=== PATIENT | female | born 1970 | race American Indian/Alaskan Native ===

== ENCOUNTER 2019-05-25 09:27 | Day surgery (SDC) | payer MEDICARE ==
[2019-05-25 10:06] VITALS: BP 127/86
[2019-05-25] MEDS ORDERED: MARCAINE 0.5% INFILTRATI ONE ×2 (11:33→12:26)
[2019-05-25] MEDS ORDERED: XYLOCAINE 1% 20 mL ONE (11:33)
[2019-05-25] MEDS ORDERED: XYLOCAINE 1% 20 mL INFILTRATI ONE (12:26)
--- NOTE | 2019-05-25 15:38 | Procedure Note ---
Date of procedure: 05/25/19 Pre-op diagnosis: chronic right knee pain Post-op diagnosis: same Procedure: Right Geniculate Nerve Block under C-arm fluroscopy procedure The patient taken to the OR suite where he was place on the table supine with padded triangular pad placed along the potileal fossa. The right knee prepped and draped in usual sterile fashion. 22-gauge spinal needle used to locate areas for injection, the medial and lateral supracondylar ridges as well as the medial border of the proximal tibia and suprapatellar region. These areas were anesthized using lidocaine 1% followed by placement of spinal needle near the medial, and lateral geniculate nerves. A mixture of marcaine and lidocaine injected into the deeper structures. There were no complications noted and he tolerated well. Anesthesia: local Surgeon: BOBBI GRIDER Patent Attorney: ADILENE CARIAS Estimated blood loss: minimal Pathology: none Condition: stable Disposition: PACU
--- NOTE | 2019-05-26 07:16 | XRay Report ---
INTRAOPERATIVE RIGHT KNEE RADIOGRAPHS INDICATION: Right knee pain. COMPARISON: None similar. IMAGES/CINE CLIPS: 2 FINDINGS: Intraoperative fluoroscopic guidance provided. AP and lateral views demonstrate 3 injection needles around the right knee joint and patellofemoral degenerative changes. CONCLUSION: Intraoperative fluoroscopic guidance provided, as described. Thank you for the opportunity to participate in this patient's care.
== END 2019-05-25 09:28 | disposition home or self-care (01) ==
LOC: OR 09:27
PROVIDERS: ATTEND Orthopaedic Surgery
DX: M17.11 Unilateral primary osteoarthritis, right knee (principal); G43.909 Migraine, unspecified, not intractable, without status migrainosus; I10 Essential (primary) hypertension; J45.909 Unspecified asthma, uncomplicated; G47.30 Sleep apnea, unspecified; K21.9 Gastro-esophageal reflux disease without esophagitis; M19.90 Unspecified osteoarthritis, unspecified site; F32.9 Major depressive disorder, single episode, unspecified; F41.9 Anxiety disorder, unspecified; Z91.040 Latex allergy status; Z79.899 Other long term (current) drug therapy; Z98.51 Tubal ligation status; Z98.890 Other specified postprocedural states; Z86.2 Personal history of diseases of the blood and blood-forming organs and certain disorders involving the immune mechanism; Z88.8 Allergy status to other drugs, medicaments and biological substances; Z86.73 Personal history of transient ischemic attack (TIA), and cerebral infarction without residual deficits

== ENCOUNTER 2019-06-29 06:01 | Day surgery (SDC) | payer MEDICARE ==
[2019-06-29] MEDS ORDERED: MARCAINE 0.5% INFILTRATI ONE ×4 (07:09→14:44)
[2019-06-29] MEDS ORDERED: DEPO-Medrol ONE (07:09)
[2019-06-29] MEDS ORDERED: XYLOCAINE 1% 20 mL ONE ×2 (07:09→14:44)
[2019-06-29] MEDS ORDERED: LACTATED RINGERS 1,000 ML ONE (07:49)
[2019-06-29] MEDS ORDERED: ZOFRAN IV PRN (08:47)
[2019-06-29] MEDS ORDERED: DILAUDID IV PRN (08:47)
--- NOTE | 2019-06-29 08:47 | Anesthesia Day of Surgery ---
Anesthesia Day of Surgery - Day of Surgery Patient Examined: Yes Patient H&P Reviewed: Yes Patient is NPO: Yes
--- NOTE | 2019-06-29 08:47 | Anesthesia Consultation ---
Anesthesia Consult and Med Hx - Airway Anesthetic Teeth Evaluation: Good ROM Head & Neck: Adequate Mental/Hyoid Distance: Adequate Mallampati Class: Class II Intubation Access Assessment: Good - Pulmonary Exam CTA: Yes - Cardiac Exam Cardiac Exam: RRR - Pre-Operative Health Status ASA Pre-Surgery Classification: ASA3 Proposed Anesthetic Plan: MAC - Pulmonary Hx Smoking: No Hx Asthma: Yes (DAILY INHALERS) Hx Sleep Apnea: Yes (DX SLEEP APNEA WITH CPAP USE.) - Cardiovascular System Hx Hypertension: Yes (X 15 YRS) - Central Nervous System Hx Seizures: Yes (LAST ONE 01/2019) CVA: Yes (SEVERAL TIA'S (LAST ONE 09/2014) NO DEFICITS) Hx Back Pain: Yes (TO RIGHT LEG (CHRONIC)) - Hematic Hx Anemia: Yes - Other Systems Hx Cancer: No
[2019-06-29] MEDS ORDERED: VERSED ONE (08:52)
[2019-06-29] MEDS ORDERED: DIPRIVAN 10 MG/ML IV ONE (08:52)
[2019-06-29] MEDS ORDERED: XYLOCAINE MPF 2% ONE (08:53)
[2019-06-29] MEDS ORDERED: LACTATED RINGERS 1,000 ML IV SCH ×2 (09:00)
[2019-06-29] MEDS ORDERED: DEPO-Medrol INTRA-ARTI ONE (09:15)
[2019-06-29] MEDS ORDERED: XYLOCAINE 1% 20 mL INFILTRATI ONE (09:15)
--- NOTE | 2019-06-29 10:48 | Procedure Note ---
Date of procedure: 06/29/19 Pre-op diagnosis: chronic right knee pain Post-op diagnosis: same Procedure: Geniculate nerve radiofrequency ablation right knee Procedure The patient was brought to the OR and placed in the OR table supine position patient was Given IV and was masked the procedure following this the patient's right knee was prepped and draped in the routine sterile manner. A timeout procedure was done to identify the patient and the correct operative site. Under C-arm visualization the skin was anesthetized with the 1% lidocaine at both the medial and lateral suprapatellar regions as well as the proximal portion of the medial tibial metaphysis. Following this the the introducers radiofrequency ablator introducer probes were inserted into the distal femoral metaphysis close to the bone and midway along the sagittal plane as well as along the proximal tibial metaphysis to be appropriate place simultaneously following this following this the probe were checked for full motor nerve function there did not appear to be any next the radiofrequency ablator was turned on and the nerves were ablated to a temperature of 60C for approximately 2-1/2 minutes each. A mixture of Depo-Medrol and lidocaine was then injected into each location to help with postoperative pain and inflammation. The patient tolerated the procedure there were no complications he was then taken to postanesthesia recovery in a stable condition. Anesthesia: other (IV sedation with local lidocaine infiltration) Surgeon: BOBBI GRIDER Estimated blood loss: minimal Pathology: none Condition: stable Disposition: PACU
[2019-06-29 10:56] VITALS: BP 137/83
--- NOTE | 2019-06-29 13:24 | Post Anesthesia Evaluation ---
- Post Anesthesia Evaluation Patient Participated: Yes Airway Patent: Yes Stable Respiratory Function: Yes Nausea/Vomiting: No Temp > 96.8F: Yes Pain Manageable: Yes Adequeate Hydration: Yes Anesthesia Complications: No Block Receding Appropriately: Not Applicable Patient on Ventilator: No
--- NOTE | 2019-06-29 15:55 | XRay Report ---
XR knee 1-2V RT INDICATION / CLINICAL INFORMATION: RT KNEE PAIN. INTRAOPERATIVE COMPARISON: None available. FINDINGS: There are 3 metallic needles overlying the distal femoral metaphysis laterally, medially and anterior ly. A single metallic needle overlies the proximal tibial metaphysis medially. There are tricompartme ntal degenerative changes. Fluoroscopy time: 27 seconds. Fluoroscopic images: 2. Signer Name: Sukh Mendoza MD Signed: 06/29/2019 3:51 PM Workstation Name: [id number]
== END 2019-06-29 11:35 | disposition home or self-care (01) ==
LOC: OR 06:01
PROVIDERS: ATTEND Orthopaedic Surgery
DX: M25.561 Pain in right knee (principal); G89.29 Other chronic pain; G43.909 Migraine, unspecified, not intractable, without status migrainosus; I10 Essential (primary) hypertension; J45.909 Unspecified asthma, uncomplicated; G47.30 Sleep apnea, unspecified; K21.9 Gastro-esophageal reflux disease without esophagitis; M19.90 Unspecified osteoarthritis, unspecified site; F41.9 Anxiety disorder, unspecified; F32.9 Major depressive disorder, single episode, unspecified; Z91.040 Latex allergy status; Z88.2 Allergy status to sulfonamides; Z98.51 Tubal ligation status; Z79.899 Other long term (current) drug therapy; Z86.711 Personal history of pulmonary embolism; Z98.890 Other specified postprocedural states; Z86.2 Personal history of diseases of the blood and blood-forming organs and certain disorders involving the immune mechanism; Z88.8 Allergy status to other drugs, medicaments and biological substances; Z86.73 Personal history of transient ischemic attack (TIA), and cerebral infarction without residual deficits
CPT/HCPCS: 64640; 73560; 82803; A4649; J1030; J1170; J2250; J2704; J7120

== ENCOUNTER 2019-08-03 07:23 | Day surgery (SDC) | payer MEDICARE ==
[2019-08-03] MEDS ORDERED: MARCAINE 0.5% INFILTRATI ONE ×2 (08:04→08:48)
[2019-08-03] MEDS ORDERED: XYLOCAINE 1% 20 mL ONE (08:04)
[2019-08-03] MEDS ORDERED: XYLOCAINE 1% 20 mL INFILTRATI ONE (08:45)
[2019-08-03 09:38] VITALS: BP 123/81
--- NOTE | 2019-08-03 10:15 | XRay Report ---
LEFT KNEE, 2 VIEWS HISTORY: Left knee pain. FINDINGS: 20 seconds of fluoroscopy time was provided by radiology during left knee ablation by the rthopedic surgeon. 6 fluoroscopic images are presented demonstrating needle placement along the media l and lateral distal femoral metaphysis and along the medial surface of the proximal tibial metaphysi s. Please correlate with the procedural report. Moderate tricompartmental osteoarthritic changes are identified. The patellofemoral space is most aff ected. No evidence for fracture or bone lesion. IMPRESSION: Osteoarthritis. Needle placement for radiofrequency ablation. Signer Name: Anand Turpin Jr, MD Signed: 08/03/2019 10:10 AM Workstation Name: [id number]
--- NOTE | 2019-08-03 16:27 | Procedure Note ---
Date of procedure: 08/03/19 Pre-op diagnosis: chronic left knee pain Post-op diagnosis: same Procedure: Left Geniculate Nerve Block under C-arm fluroscopy procedure The patient taken to the OR suite where he was place on the table supine with padded triangular pad placed along the potileal fossa. The left knee prepped and draped in usual sterile fashion. 22-gauge spinal needle used to locate areas for injection, the medial and lateral supracondylar ridges as well as the medial bor johana of the proximal tibia and suprapatellar region. These areas were anesthized using lidocaine 1% followed by placement of spinal needle near the medial, and lateral geniculate nerves. A mixture of marcaine and lidocaine injected into the deeper structures. There were no complications noted and he tolerated w Anesthesia: local Surgeon: BOBBI GRIDER Estimated blood loss: minimal Pathology: none Condition: stable Disposition: observation
== END 2019-08-03 07:24 | disposition home or self-care (01) ==
LOC: OR 07:23
PROVIDERS: ATTEND Orthopaedic Surgery
DX: M25.562 Pain in left knee (principal); G89.29 Other chronic pain; G43.909 Migraine, unspecified, not intractable, without status migrainosus; I10 Essential (primary) hypertension; G47.33 Obstructive sleep apnea (adult) (pediatric); K21.9 Gastro-esophageal reflux disease without esophagitis; M79.7 Fibromyalgia; M19.90 Unspecified osteoarthritis, unspecified site; F32.9 Major depressive disorder, single episode, unspecified; F41.9 Anxiety disorder, unspecified; J45.909 Unspecified asthma, uncomplicated; Z88.8 Allergy status to other drugs, medicaments and biological substances; Z91.040 Latex allergy status; Z79.899 Other long term (current) drug therapy; Z98.51 Tubal ligation status; Z98.890 Other specified postprocedural states; Z86.73 Personal history of transient ischemic attack (TIA), and cerebral infarction without residual deficits; Z86.2 Personal history of diseases of the blood and blood-forming organs and certain disorders involving the immune mechanism

== ENCOUNTER 2019-09-07 05:50 | Day surgery (SDC) | payer MEDICARE ==
[2019-09-07] MEDS ORDERED: LACTATED RINGERS 1,000 ML IV SCH (07:00)
[2019-09-07] MEDS ORDERED: ceFAZolin/STERILE WATER 2 GM/20 ML SYRINGE IV NR (07:00)
[2019-09-07] MEDS ORDERED: methylPREDNISolone ACETATE 40 MG/1 ML INJ ONE (07:08)
[2019-09-07] MEDS ORDERED: BUPIVACAINE/PF (0.5%) 5 MG/1 ML 30 ML VIAL INFILTRATI ONE ×2 (07:09→09:56)
[2019-09-07] MEDS ORDERED: LIDOCAINE (1%) 10 MG/1 ML VIAL 20 ML MDV ONE (07:09)
[2019-09-07] MEDS ORDERED: SUCCINYLCHOLINE CHLORIDE 200 MG/10 ML INJ MDV ONE (07:51)
[2019-09-07] MEDS ORDERED: ONDANSETRON 4 MG/2 ML INJ ONE (07:51)
[2019-09-07] MEDS ORDERED: dexAMETHasone 20 MG/5 ML VIAL ONE (07:51)
[2019-09-07] MEDS ORDERED: LIDOCAINE MPF (2%) 20 MG/1 ML VIAL 5 ML ONE (07:51)
[2019-09-07] MEDS ORDERED: GLYCOPYRROLATE 0.4 MG/2 ML INJ ONE (07:51)
[2019-09-07] MEDS ORDERED: PHENYLEPHRINE/NS 1,000 MCG/10 ML SYRINGE (OR USE) IV ONE (07:52)
--- NOTE | 2019-09-07 08:12 | Anesthesia Day of Surgery ---
Anesthesia Day of Surgery - Day of Surgery Patient Examined: Yes Patient H&P Reviewed: Yes Patient is NPO: Yes
--- NOTE | 2019-09-07 08:16 | Anesthesia Consultation ---
Anesthesia Consult and Med Hx Date of service: 09/07/19 - Pre-Operative Health Status ASA Pre-Surgery Classification: ASA3 Proposed Anesthetic Plan: General (MAC; GA IF NEEDED), MAC - Pulmonary Hx Smoking: No Hx Asthma: Yes (DAILY INHALERS) Hx Sleep Apnea: Yes (DX SLEEP APNEA WITH CPAP USE.) - Cardiovascular System Hx Hypertension: Yes (X 15 YRS) - Central Nervous System Hx Neuromuscular Disorder: Yes (SLE: Chronic pain) Hx Seizures: Yes (LAST ONE 01/2019- ON DAILY MEDS) CVA: Yes (SEVERAL TIA'S (LAST ONE 09/2014) NO DEFICITS) Hx Back Pain: Yes (TO RIGHT LEG (CHRONIC)) - Hematic Hx Anemia: Yes - Other Systems Hx Cancer: No - Additional Comments Anesthesia Medical History Comments: [facility]
[2019-09-07] MEDS ORDERED: fentaNYL 100 MCG/2 ML INJ ONE (09:27)
[2019-09-07] MEDS ORDERED: PROPOFOL 200 MG/20 ML VIAL IV ONE ×2 (09:27→10:02)
[2019-09-07] MEDS ORDERED: LIDOCAINE (1%) 10 MG/1 ML VIAL 20 ML MDV INFILTRATI ONE (09:56)
[2019-09-07] MEDS ORDERED: methylPREDNISolone ACETATE 40 MG/1 ML INJ INTRA-ARTI ONE (10:03)
--- NOTE | 2019-09-07 10:19 | Procedure Note ---
Date of procedure: 09/07/19 Pre-op diagnosis: chronic left knee pain Post-op diagnosis: same Procedure: Geniculate nerve radiofrequency ablation left knee Procedure The patient was brought to the OR and placed in the OR table supine position patient was Given IV and was masked the procedure following this the patient's left knee was prepped and draped in the routine sterile manner. A timeout procedure was done to identify the patient and the correct operative site. Under C-arm visualization the skin was anesthetized with the 1% lidocaine at both the medial and lateral suprapatellar regions as well as the proximal portion of the medial tibial metaphysis. Following this the the introducers radiofrequency ablator introducer probes were inserted into the distal femoral metaphysis close to the bone and midway along the sagittal plane as well as along the proximal tibial metaphysis to be appropriate place simultaneously following this following this the probe were checked for full motor nerve function there did not appear to be any next the radiofrequency ablator was tur mir on and the nerves were ablated to a temperature of 60C for approximately 2- 1/2 minutes each. A mixture of Depo-Medrol and lidocaine was then injected into each location to help with postoperative pain and inflammation. The patient tolerated the procedure there were no complications he was then taken to postanesthesia recovery in a stable condition Anesthesia: other (IV sedation) Surgeon: BOBBI GRIDER Estimated blood loss: minimal Pathology: none Condition: stable Disposition: PACU
[2019-09-07 10:37] VITALS: BP 118/71
[2019-09-07] MEDS ORDERED: HYDROcodone/ACETAMINOPHEN 7.5-325MG TAB PO PRN (10:40)
--- NOTE | 2019-09-07 11:14 | XRay Report ---
INTRAOPERATIVE FLUOROSCOPY: LEFT KNEE INDICATION / CLINICAL INFORMATION: Left knee pain. TECHNIQUE: Intraoperative spot images were obtained during the procedure. FINDINGS: Multiple ablation needles project around the left knee. Fluoroscopy Time: 57 seconds. Fluoroscopy Images: 2. Signer Name: Marshall Grimm MD Signed: 09/07/2019 11:10 AM Workstation Name: [id number]
== END 2019-09-07 11:35 | disposition home or self-care (01) ==
LOC: OR 05:50
PROVIDERS: ATTEND Orthopaedic Surgery
DX: M25.562 Pain in left knee (principal); G89.29 Other chronic pain; G43.909 Migraine, unspecified, not intractable, without status migrainosus; J45.909 Unspecified asthma, uncomplicated; I10 Essential (primary) hypertension; G47.30 Sleep apnea, unspecified; F41.9 Anxiety disorder, unspecified; K21.9 Gastro-esophageal reflux disease without esophagitis; M79.7 Fibromyalgia; M19.90 Unspecified osteoarthritis, unspecified site; F32.9 Major depressive disorder, single episode, unspecified; Z91.040 Latex allergy status; Z88.8 Allergy status to other drugs, medicaments and biological substances; Z79.82 Long term (current) use of aspirin; Z79.899 Other long term (current) drug therapy; Z86.711 Personal history of pulmonary embolism; Z98.51 Tubal ligation status; Z98.890 Other specified postprocedural states; Z86.2 Personal history of diseases of the blood and blood-forming organs and certain disorders involving the immune mechanism; Z86.73 Personal history of transient ischemic attack (TIA), and cerebral infarction without residual deficits
CPT/HCPCS: 64640; 73560; A4649; J0330; J1030; J1100; J2370; J2405; J2704; J3010; J7120

== ENCOUNTER 2020-05-06 09:51 | Outpatient (CLI) | payer MEDICARE | END 2020-05-06 09:52 | disposition home or self-care (01) | LOC: MRI 09:51 | PROVIDERS: ATTEND Orthopaedic Surgery | DX: M17.12 Unilateral primary osteoarthritis, left knee (principal); M25.462 Effusion, left knee; M65.862 Other synovitis and tenosynovitis, left lower leg; M76.892 Other specified enthesopathies of left lower limb, excluding foot | CPT/HCPCS: 73721 ==

== ENCOUNTER 2022-01-19 10:53 | Outpatient (CLI) | payer MEDICARE ==
--- NOTE | 2022-01-19 12:17 | XRay Report ---
Right hand 3 views INDICATION: Hand pain FINDINGS: MCP joints and IP joints appear normal. Carpal bone alignment appears normal. No acute frac ture. Signer Name: Tom Langley MD Signed: 01/19/2022 12:13 PM Workstation Name: [id number]
--- NOTE | 2022-01-19 12:17 | XRay Report ---
Bilateral knees standing INDICATION: Knee pain FINDINGS: Right: There is tricompartmental degenerative change with significant joint space narrowing throughout most significant in the patellofemoral joint. No acute fracture dislocation. Large marginal osteophytes. Left: Tricompartmental degenerative change most significant at patellofemoral joint. No acute fracture. Signer Name: Tom Langley MD Signed: 01/19/2022 12:12 PM Workstation Name: [id number]
== END 2022-01-19 10:54 | disposition home or self-care (01) ==
LOC: XRAY 10:53
PROVIDERS: ATTEND Orthopaedic Surgery
DX: M17.0 Bilateral primary osteoarthritis of knee (principal); G56.01 Carpal tunnel syndrome, right upper limb
CPT/HCPCS: 73565